=== PATIENT | female | born 1950 | race Caucasian/White ===

== ENCOUNTER 2022-04-25 07:36 | Day surgery (SDC) | payer OTHER, BC ==
[2022-04-25] MEDS ORDERED: PROPOFOL 80 ML ONE (07:53)
== END 2022-04-25 10:25 | disposition home or self-care (01) ==
LOC: FASU-ENDO 07:36
PROVIDERS: ATTEND Student in an Organized Health Care Education/Training Program
PROC: 0DBP8ZX Excision of Rectum, Via Natural or Artificial Opening Endoscopic, Diagnostic (ICD-10-PCS; 2022-04-25)
PROC: 0DB58ZX Excision of Esophagus, Via Natural or Artificial Opening Endoscopic, Diagnostic (ICD-10-PCS; 2022-04-25)
PROC: 0DB68ZX Excision of Stomach, Via Natural or Artificial Opening Endoscopic, Diagnostic (ICD-10-PCS; 2022-04-25)
PROC: 0DBK8ZX Excision of Ascending Colon, Via Natural or Artificial Opening Endoscopic, Diagnostic (ICD-10-PCS; principal; 2022-04-25 08:46)
DX: R19.7 Diarrhea, unspecified (principal); Z86.010 Personal history of colon polyps; R10.13 Epigastric pain; K62.1 Rectal polyp; K63.5 Polyp of colon; R13.10 Dysphagia, unspecified; K57.30 Diverticulosis of large intestine without perforation or abscess without bleeding; K64.8 Other hemorrhoids; K29.50 Unspecified chronic gastritis without bleeding
CPT/HCPCS: 88305-TC; 88342-TC